=== PATIENT | female | born 1980 | race American Indian/Alaskan Native ===

== ENCOUNTER 2018-05-16 14:42 | Outpatient (CLI) | payer MEDICAID ==
--- NOTE | 2018-05-16 15:21 | XRay Report ---
RIGHT HAND, 3 views: History: Pain in middle finger The bony architecture is intact. Bony alignment is normal. No soft tissue abnormalities are seen. The joint spaces appear preserved. IMPRESSION: Normal right hand.
== END 2018-05-16 14:43 | disposition home or self-care (01) ==
LOC: XRAY 14:42
PROVIDERS: ATTEND Internal Medicine
DX: M79.644 Pain in right finger(s) (principal); Z87.891 Personal history of nicotine dependence